=== PATIENT | female | born 1965 | race Caucasian/White ===

== ENCOUNTER 2018-02-05 11:30 | Inpatient (IN) | payer OTHER ==
[~2018-02-05] VITALS: Ht 162.6 cm; Wt 132.9 kg
[2018-02-05] MEDS ORDERED: METOPROLOL SUCC25 MG PO (15:40)
[2018-02-05] MEDS ORDERED: SYNTHROID125 MCG PO (15:40)
[2018-02-05] MEDS ORDERED: PAXIL40 MG PO (15:41)
[2018-02-05] MEDS ORDERED: PLAVIX75 MG PO (15:41)
[2018-02-05] MEDS ORDERED: ASA81 MG PO (15:42)
[2018-02-05] MEDS ORDERED: LISINOPRIL-HCT1 EAC2 PO (15:42)
[2018-02-05] MEDS ORDERED: GABAPENTIN600 MG PO (15:42)
[2018-02-13] MEDS ORDERED: DOCUSATE SODIU100 MG PO (11:05)
[2018-02-13] MEDS ORDERED: GABAPENTIN800 MG PO (11:05)
[2018-02-13] MEDS ORDERED: CIPROFLOXACIN750 MG PO (11:07)
[2018-02-13] MEDS ORDERED: PERCOCET 5-3251 EACH PO (11:08)
[2018-02-13] MEDS ORDERED: CLONAZEPAM1 MG PO (11:08)
== END 2018-02-14 17:44 | disposition home or self-care (01) | DRG 455 ==
LOC: O/R 02-13 04:54 → SURH 02-13 04:54 → SURG-SUITE 02-13 07:00 → SURG 02-13 15:30 → SURH 02-13 17:41
PROVIDERS: Orthopaedic Surgery Orthopaedic Surgery of the Spine
PROC: 0SG00A0 Fusion of Lumbar Vertebral Joint with Interbody Fusion Device, Anterior Approach, Anterior Column, Open Approach (ICD-10-PCS; 2018-02-13)
PROC: 0SG00J1 Fusion of Lumbar Vertebral Joint with Synthetic Substitute, Posterior Approach, Posterior Column, Open Approach (ICD-10-PCS; 2018-02-13)
PROC: 07DS3ZZ Extraction of Vertebral Bone Marrow, Percutaneous Approach (ICD-10-PCS; 2018-02-13)
PROC: 0SB20ZZ Excision of Lumbar Vertebral Disc, Open Approach (ICD-10-PCS; principal; 2018-02-13 07:00)
DX: M43.16 Spondylolisthesis, lumbar region (principal); M51.36 Other intervertebral disc degeneration, lumbar region; I10 Essential (primary) hypertension; E03.8 Other specified hypothyroidism; E66.01 Morbid (severe) obesity due to excess calories; M79.7 Fibromyalgia